=== PATIENT | male | born 1950 ===

== ENCOUNTER 2017-12-01 12:00 | Day surgery (SDC) | payer OTHER ==
[2017-11-30 15:58] VITALS: BMI 34.3
--- NOTE | 2017-12-01 12:57 | HP ---
History & Physical Update - History History: No Change - Physical Physical: No Change - Assessment Assessment: No Change - Plan Plan: No Change
--- NOTE | 2017-12-01 12:59 | OP ---
Operative Note - Note: Operative Date: 12/01/17 Pre-Operative Diagnosis: prostate cancer Operation: prostate cryoablation and cystoscopy Findings: heterogeneous prostate Post-Operative Diagnosis: Same as Pre-op Surgeon: Trevor Whalen Anesthesiologist/BOILER REPAIRMAN: Roseline Nicole Anesthesia: General Estimated Blood Loss (mls): 0 Drains & Tubes with Location: 18 fr lomeli Operative Report Dictated: Yes
[2017-12-01] MEDS ORDERED: ceFAZolin SODIUM 1 GM VIAL IVPB ONE (13:28)
[2017-12-01] MEDS ORDERED: oxyCODONE HCL 5 MG TABLET PO PRN (14:12)
[2017-12-01] MEDS ORDERED: ONDANSETRON 4 MG/2 ML VIAL IVPUSH PRN (14:12)
[2017-12-01] MEDS ORDERED: LACTATED RINGERS SOLUTION 1,000 ML IV SCH (14:15)
--- NOTE | 2017-12-01 15:49 | OP ---
DATE OF OPERATION: 12/01/2017 PREOPERATIVE DIAGNOSIS: Prostate cancer. POSTOPERATIVE DIAGNOSIS: Prostate cancer. PROCEDURE: Prostate cryoablation, cystoscopy. SURGEON: Trevor Velázquez M.D. HOUSING RELOCATION: None. ANESTHESIA: General via laryngeal mask. ANESTHESIOLOGIST: Roseline Nicole M.D. SPECIMEN: None. CULTURES: None. DRAINS: An 18 [place] Humphries catheter. ESTIMATED BLOOD LOSS: Negligible. COMPLICATIONS: None. DESCRIPTION OF PROCEDURE: Patient was brought in the operating room, placed on the operating table in the supine position. After the administration of general anesthesia via laryngeal mask, intravenous antibiotics were administered and sequential compression devices were placed. The patient placed in dorsal lithotomy position, and the perineum was shaved first, and the perineum and genitals were prepped and draped in the usual sterile manner. An 18 [place] Humphries catheter was placed into the bladder. 10 mL was placed in the balloon. The bladder was filled with 300 mL of sterile normal saline and clamped. Now Ioban drape was placed, and patient was then prepped and draped in usual sterile manner. Now the transrectal ultrasound probe was placed per rectum, and transrectal ultrasound of the prostate was done. Measurements and volume recordings were taken. The plan was made for the cryoablation. Now the cryoprobes were tested first and then inserted in the appropriate location as per the plan under ultrasound guidance. Temperature sensors were placed fascia and external sphincter. The Humphries catheter was then removed, and flexible sigmoidoscopy was done, demonstrated no probes had penetrated the prostatic urethra nor the bladder. Prostate measured approximately 4.5 to 5 cm in length, demonstrated moderate bilobar occlusion. The bladder was unremarkable. Now superstiff guidewire was passed through the Humphries catheter, and the cystoscope was removed, leaving the guidewire in place. Now a urethral warmer was passed over the superstiff guidewire, and the guidewire was removed. Urethral warming was started. Now position of the temperature probes was once again reassured to be in proper position. The measurements were confirmed, and appropriate settings placed on the probes. Now 2 cycles were done. Urethral warmer was left for additional 5 minutes, and then temperature sensors and cryoprobes were removed. Hemostasis was assured with direct pressure on the perineum. A sterile compressive dressing was applied. The urethral warmer was removed. An 18 [place] Humphries catheter was replaced. 10 mL was placed in the balloon, placed in gravity drainage, return clear. He tolerated procedure well and transferred to recovery room in stable condition. TREVOR VELÁZQUEZ M.D. 1 [id number]
[2017-12-01 18:15] VITALS: BP 150/83; PULSE 64; TEMP 97.8
== END 2017-12-01 18:31 | disposition home or self-care (01) ==
LOC: JASU-SURG 12:00
PROVIDERS: ATTEND Urology
PROC: 0V508ZZ Destruction of Prostate, Via Natural or Artificial Opening Endoscopic (ICD-10-PCS; principal; 2017-12-01 12:00)
DX: C61 Malignant neoplasm of prostate (principal)
CPT/HCPCS: 55873; C2618; 94760